=== PATIENT | male | born 1985 | race Caucasian/White ===

== ENCOUNTER 2016-12-20 18:53 | Emergency (ER) | payer OTHER | END 2016-12-20 23:00 | disposition home or self-care (01) | LOC: FER 18:53 | DX: S06.0X1A Concussion with loss of consciousness of 30 minutes or less, initial encounter (principal); Z88.1 Allergy status to other antibiotic agents; Z88.2 Allergy status to sulfonamides; V86.99XA Unspecified occupant of other special all-terrain or other off-road motor vehicle injured in nontraffic accident, initial encounter | CPT/HCPCS: 70450; 71010; 72125; 73010; 73030; 73564; 90471; 90715 ==